=== PATIENT | male | born 1985 | race Caucasian/White ===

== ENCOUNTER 2023-11-27 14:38 | Emergency (ER) | payer OTHER ==
[~2023-11-27] VITALS: Ht 177.8 cm; Wt 97.5 kg
[2023-11-27 16:21] VITALS: BP 146/96
[2023-11-27 16:30] VITALS: BP 160/106
[2023-11-27 16:45] VITALS: BP 160/105
[2023-11-27] MEDS ORDERED: Diph, Acellular Pertussis, Tet 0.5 ML/VIAL (Tdap) SDV IM ONE (16:50)
[2023-11-27 17:00] VITALS: BP 157/89
[2023-11-27 17:26] VITALS: BP 157/89
== END 2023-11-27 17:31 | disposition home or self-care (01) | DRG 605 ==
LOC: ED 14:38
PROC: 0HQ0XZZ Repair Scalp Skin, External Approach (ICD-10-PCS; principal; 2023-11-27)
DX: S01.01XA Laceration without foreign body of scalp, initial encounter (principal); W22.09XA Striking against other stationary object, initial encounter; Y99.0 Civilian activity done for income or pay

== ENCOUNTER 2023-12-04 07:16 | Emergency (ER) | payer OTHER ==
[~2023-12-04] VITALS: Ht 177.8 cm; Wt 98.2 kg
[2023-12-04 07:22] VITALS: BP 152/104
[2023-12-04 07:27] VITALS: BP 152/104
== END 2023-12-04 07:32 | disposition home or self-care (01) | DRG 950 ==
LOC: ED 07:16
DX: S01.01XD Laceration without foreign body of scalp, subsequent encounter (principal); X58.XXXD Exposure to other specified factors, subsequent encounter